=== PATIENT | male | born 1985 | race Caucasian/White ===

== ENCOUNTER → 2022-06-12 | Outpatient (CLI) | payer MEDICAID, SELFPAY ==
[2022-06-12 16:32] LABS: Absolute Lymphocyte Count 1.93 X10^3/uL (0.83-4.51); Absolute Neutrophil Count 1.7 X10^3/uL (2.0-7.7); Basophil# 0.02 X10^3/uL; Basophil% 0.5 % (0-1); Eosinophil# 0.28 X10^3/uL; Eosinophils% 6.6 % (0-5); Hematocrit 42.3 % (40-54); Hemoglobin 14.5 g/dL (13.0-16.5); Lymphocyte # 1.93 X10^3/ul (0.83-4.51); Lymphocyte % 45.5 % (19-41); Mean Corp Hgb Conc 34.3 g/dL (32-36); Mean Corpuscular Hgb 30.6 pg (27.0-32.0); Mean Corpuscular Volume 89.2 fL (80-94); Mean Platelet Vol. 9.7 fl (6.2-12.0); Monocyte# 0.33 X10^3/uL; Monocyte% 7.8 % (0-10); NRBC Flagged by Analyzer 0 % (0-5); Neutrophil # 1.67 X10^3/uL (2.7-7.7); Neutrophil % 39.4 % (47-70); Platelet Count 250 K/mm3 (150-450); RBC Distribution Width CV 12.3 % (11.6-14.6); RBC Distribution Width SD 40.5 fl (35.1-43.9); Red Blood Count 4.74 M/mm3 (4.6-6.2); White Blood Count 4.2 K/mm3 (4.4-11.0)
[2022-06-12 16:43] LABS: ALB/GLOB Ratio 1.2 RATIO (0.9-2.4); AST(SGOT) 20 U/L (15-37); Alanine Aminotransfer ALT/SGPT 29 U/L (16-61); Albumin, Serum 4.1 g/dL (3.2-5.0); Alkaline Phosphatase 72 U/L (45-117); Anion Gap 4 (5-15); BUN 17 mg/dL (7-18); BUN/Creat Ratio 20.1 RATIO (10-20); Calcium,Total 9.7 mg/dL (8.5-10.1); Chloride 106 mmol/L (98-107); Creatinine, Serum 0.85 mg/dL (0.70-1.30); EST Glomerular Filtration Rate 110 mL/min (>60); Est Glom Filt Rate - Afr Amer 133 mL/min (>60); Globulin 3.5 g/dL (2.2-4.2); Glucose 96 mg/dL (74-106); Potassium 4.3 mmol/L (3.5-5.1); Protein, Total 7.6 g/dL (6.4-8.2); Sodium Level 139 mmol/L (136-145)
== END | disposition home or self-care (01) ==
PROVIDERS: PCP Internal Medicine; Referring Provider Internal Medicine; Visit Provider Internal Medicine
DX: F41.9 Anxiety disorder, unspecified (principal); F32.A Depression, unspecified
CPT/HCPCS: 36415; 80053; 85025

== ENCOUNTER → 2023-08-05 | Outpatient (CLI) | payer MEDICAID, SELFPAY ==
[2023-08-05 16:45] LABS: Absolute Lymphocyte Count 1.79 X10^3/uL (0.83-4.51); Absolute Neutrophil Count 2.5 X10^3/uL (2.0-7.7); Basophil# 0.01 X10^3/uL; Basophil% 0.2 % (0-1); Eosinophil# 0.12 X10^3/uL; Eosinophils% 2.5 % (0-5); Hematocrit 41.1 % (40-54); Hemoglobin 14.2 g/dL (13.0-16.5); Lymphocyte # 1.79 X10^3/ul (0.83-4.51); Lymphocyte % 36.8 % (19-41); Mean Corp Hgb Conc 34.5 g/dL (32-36); Mean Corpuscular Hgb 30.4 pg (27.0-32.0); Mean Platelet Vol. 9.6 fl (6.2-12.0); Monocyte# 0.43 X10^3/uL; Monocyte% 8.8 % (0-10); NRBC Flagged by Analyzer 0 % (0-5); Neutrophil % 51.5 % (47-70); Platelet Count 262 K/mm3 (150-450); RBC Distribution Width CV 12.3 % (11.6-14.6); RBC Distribution Width SD 39.1 fl (35.1-43.9); Red Blood Count 4.67 M/mm3 (4.6-6.2); White Blood Count 4.9 K/mm3 (4.4-11.0)
[2023-08-05 16:59] LABS: ALB/GLOB Ratio 1.2 RATIO (0.9-2.4); AST(SGOT) 13 U/L (15-37); Alanine Aminotransfer ALT/SGPT 22 U/L (16-61); Albumin, Serum 4.1 g/dL (3.2-5.0); Alkaline Phosphatase 71 U/L (45-117); Anion Gap 4 (5-15); BUN 12 mg/dL (7-18); BUN/Creat Ratio 12.6 RATIO (10-20); Calcium,Total 9.7 mg/dL (8.5-10.1); Chloride 106 mmol/L (98-107); Cholesterol 170 mg/dL (200); Creatinine, Serum 0.95 mg/dL (0.70-1.30); EST Glomerular Filtration Rate 96 mL/min (>60); Est Glom Filt Rate - Afr Amer 116 mL/min (>60); Globulin 3.5 g/dL (2.2-4.2); Glucose 99 mg/dL (74-106); High Density Lipoprotein 58 mg/dL; Potassium 4.3 mmol/L (3.5-5.1); Protein, Total 7.6 g/dL (6.4-8.2); Sodium Level 138 mmol/L (136-145); Triglycerides 81 mg/dL; Very Low Density Lipoprotein 16 mg/dL (5-40)
== END | disposition home or self-care (01) ==
LOC: BIMLAB 14:57
PROVIDERS: PCP Internal Medicine; Referring Provider Internal Medicine; Visit Provider Internal Medicine
DX: Z00.00 Encounter for general adult medical examination without abnormal findings (principal)
CPT/HCPCS: 36415; 80053; 80061; 85025

== ENCOUNTER 2024-09-05 16:24 | Observation (INO) | payer MEDICAID, SELFPAY ==
[2024-09-05 16:26] VITALS: BP 116/82; PULSE 100; RESP 18; TEMP 36.4; O2SAT 99; BMI 24.0
--- NOTE | 2024-09-05 16:48 | EX.ED.DYSGE1 ---
HPI History of Present Illness Chief Complaint: Substance Abuse Narrative Narrative: Chief complaint and HPI: Requesting opiate detox. 38-year-old male with past medical history of depression, previous history of hepatitis C in which she was treated 2 years ago presents for evaluation of opiate detox. Patient states he is an IV drug abuser in which he uses fentanyl. Denies any other illicit drug. Last use this morning but states that he snorted. Denies any withdrawal symptoms at this time. Denies any alcohol use. Denies any suicidal or homicidal ideation. Denies any fever, chills, nausea, vomiting, body aches. Review of systems: See HPI Medications: As listed on the chart Allergies: As listed on the chart PFSH: Per chart Vital signs: As listed on the chart. Reviewed. Physical exam: Gen: A&O x3, NAD Head: Normocephalic, atraumatic Eyes: No sclera icterus, conjunctiva clear ENT: Moist mucous membranes Neck: Trachea midline, No JVD CV: RRR, no murmurs, no peripheral edema Resp: Lungs CTA BL, no w/r/c GI: Abd soft, non-distended, non-tender, no r/r/g Musc: Full ROM, no deformity Skin: Warm, dry Neuro: Alert, oriented, grossly intact, sensation intact Psych: Cooperative, appropriate mood and affect [facility] Medical History (Updated 09/05/24 @ 18:[address] Nory Panda DO) Preventative health care Hepatitis C virus infection cured after antiviral drug therapy Anxiety and depression Kidney failure History of drug abuse Asthma Home Medications ?Medication ?Instructions ?Recorded ?Last Taken ?Type citalopram 20 mg tablet 20 mg PO DAILY #90 TABLETS 11/08/23 Unknown Rx diphenhydramine HCl 25 mg capsule 25 mg PO QHS PRN SLEEP OR ALLERGIES 09/05/24 09/02/24 History (Aler-Cap) Allergy/AdvReac Type Severity Reaction Status Date / Time No Known Allergies Allergy Verified 09/05/24 16:26 Family History Father Alcoholism Anxiety Depression Social History (Updated 09/05/24 @ 16:50 by Daily Tierney) housing: house Smoking Status: Current every day smoker tobacco type: cigarettes Smokeless tobacco user: other Electronic Cigarette Use: with nicotine alcohol intake: former substance use type: former substance user what type of physical activity do you participate in: none seatbelt use: always do you feel safe at home: Yes EXAM Physical Exam Const Vital Signs: 09/05/24 16:26 09/05/24 17:03 09/05/24 17:25 Temperature 97.5 F L 97.5 F L Temperature Source Temporal Pulse Rate 100 100 70 Respiratory Rate 18 18 18 Blood Pressure 116/82 H 116/82 H 118/70 Blood Pressure Mean 93 93 86 Pulse Ox 99 99 99 Oxygen Delivery Method Room Air 09/05/24 18:00 Temperature Temperature Source Pulse Rate 86 Respiratory Rate 17 Blood Pressure 104/75 Blood Pressure Mean 84 Pulse Ox 100 Oxygen Delivery Method Room Air MDM MDM MDM Narrative Medical decision making narrative: 38-year-old male with past medical history of depression, previous history of hepatitis C in which she was treated 2 years ago presents for evaluation of opiate detox. Patient states he is an IV drug abuser in which he uses fentanyl. Denies any other illicit drug. Last use this morning but states that he snorted. Currently denying withdrawal symptoms. Plan will be for admission for detox. Basic labs ordered with alcohol and urine drug test. CBC unremarkable. CMP unremarkable except for hypokalemia of 3.2. P.o. potassium ordered. Alcohol level unremarkable. Urine drug screen positive for opioids, fentanyl, benzodiazepines, cannabis. Patient is stable to be admitted for opiate detox. Patient discussed with the hospitalist who accepted admission. Patient was updated of the plan and confirmed understanding. Impression: 1. Opiate abuse, requesting detox 2. Polysubstance abuse 3. Hypokalemia Lab Data Labs: Laboratory Results - last 24 hr 09/05/24 09/05/24 16:45 16:59 WBC 8.0 RBC 4.95 Hgb 15.0 Hct 43.2 MCV 87.3 MCH 30.3 MCHC 34.7 RDW Std Deviation 42.5 RDW Coeff of [place] 13.3 Plt Count 355 MPV 8.9 Immature Gran % (Auto) 0.300 Neut % (Auto) 55.2 Lymph % (Auto) 33.4 [place] % (Auto) 8.8 Eos % (Auto) 1.8 Baso % (Auto) 0.5 Absolute Neuts (auto) 4.4 Absolute Lymphs (auto) 2.66 Nucleated RBC % 0 Sodium 140 Potassium 3.2 L Chloride 101 Carbon Dioxide 22.8 Anion Gap 16 H BUN 22 H Creatinine 0.90 Estim Creat Clear Calc 113.47 Est GFR (MDRD) Non-Af 114 BUN/Creatinine Ratio 24.3 H Glucose 100 H Calcium 10.1 Total Bilirubin 0.59 AST 16 ALT 24 Alkaline Phosphatase 97 Total Protein 8.4 Albumin 4.8 Globulin 3.6 Albumin/Globulin Ratio 1.3 Urine Opiates Screen PRESUMPTIVE POSITIVE U Buprenorphine Qual NEGATIVE Ur Oxycodone Screen NEGATIVE Urine Methadone Screen NEGATIVE Urine Fentanyl Screen PRESUMPTIVE POSITIVE Ur Barbiturates Screen NEGATIVE Ur Phencyclidine Scrn NEGATIVE Ur Amphetamines Screen NEGATIVE U Benzodiazepines Scrn PRESUMPTIVE POSITIVE Urine Cocaine Screen NEGATIVE U Cannabinoids Screen PRESUMPTIVE POSITIVE Ethyl Alcohol < 10.1 Discharge Plan Triage Chief Complaint: Substance Abuse ED Provider: Tirso Belcher Dx/Rx/DC Orders Prescriptions: No Action diphenhydramine HCl [Aler-Cap] 25 mg capsule 25 mg PO QHS PRN (Reason: SLEEP OR ALLERGIES) citalopram 20 mg tablet 20 mg PO DAILY Qty: 90 2RF Primary Care Provider: Reid Aguilar Referrals: Reid Aguilar MD [Primary Care Provider] - Print Language: Luxembourger
[2024-09-05 17:03] VITALS: BP 116/82; PULSE 100; RESP 18; TEMP 36.4; O2SAT 99
[2024-09-05 17:18] LABS: Absolute Lymphocyte Count 2.66 X10^3/uL (0.83-4.51); Absolute Neutrophil Count 4.4 X10^3/uL (2.0-7.7); Basophil# 0.04 X10^3/uL; Basophil% 0.5 % (0-1); Eosinophil# 0.14 X10^3/uL; Eosinophils% 1.8 % (0-5); Hematocrit 43.2 % (40-54); Lymphocyte # 2.66 X10^3/ul (0.83-4.51); Lymphocyte % 33.4 % (19-41); Mean Corp Hgb Conc 34.7 g/dL (32-36); Mean Corpuscular Hgb 30.3 pg (27.0-32.0); Mean Corpuscular Volume 87.3 fL (80-94); Mean Platelet Vol. 8.9 fl (6.2-12.0); Monocyte% 8.8 % (0-10); NRBC Flagged by Analyzer 0 % (0-5); Neutrophil # 4.41 X10^3/uL (2.7-7.7); Neutrophil % 55.2 % (47-70); Platelet Count 355 K/mm3 (150-450); RBC Distribution Width CV 13.3 % (11.6-14.6); RBC Distribution Width SD 42.5 fl (35.1-43.9); Red Blood Count 4.95 M/mm3 (4.6-6.2)
[2024-09-05 17:25] VITALS: BP 118/70; PULSE 70; RESP 18; O2SAT 99
[2024-09-05 17:33] LABS: Alcohol, Blood (Medical)-Serum < 10.1 mg/dL (<=10.0)
[2024-09-05 17:34] LABS: ALB/GLOB Ratio 1.3 RATIO (0.9-2.4); AST(SGOT) 16 U/L (<=37); Alanine Aminotransfer ALT/SGPT 24 U/L (<=46); Albumin, Serum 4.8 g/dL (3.5-5.0); Alkaline Phosphatase 97 U/L (40-129); Anion Gap 16 (5-15); BUN 22 mg/dL (4-19); BUN/Creat Ratio 24.3 RATIO (10-20); Calcium,Total 10.1 mg/dL (7.6-11.0); Carbon Dioxide 22.8 mmol/L (21.0-32.0); Chloride 101 mmol/L (98-108); EST Glomerular Filtration Rate 114 (>60); Estimated Creatinine Clearance 113.47 ml/min (50-250); Globulin 3.6 g/dL (2.2-4.2); Glucose 100 mg/dL (70-99); Potassium 3.2 mmol/L (3.3-5.1); Protein, Total 8.4 g/dL (5.9-8.4); Sodium Level 140 mmol/L (133-145); Total Bilirubin 0.59 mg/dL (0.00-1.30)
[2024-09-05 17:43] LABS: Amphetamine Urine NEGATIVE (<1000 ng/mL); Barbiturate Urine NEGATIVE (< 200 ng/mL); Benzodiazepine Urine PRESUMPTIVE POSITIVE (< 200 ng/mL); Buprenorphine Urine NEGATIVE (< 200 ng/mL); Cocaine Urine NEGATIVE (< 300 ng/mL); Fentanyl, Urine PRESUMPTIVE POSITIVE; Methadone Urine NEGATIVE (< 300 ng/mL); Opiates Urine PRESUMPTIVE POSITIVE (< 300 ng/mL); Oxycodone, Urine NEGATIVE (< 100 ng/mL); PCP Urine NEGATIVE (< 25 ng/mL); THC Urine PRESUMPTIVE POSITIVE (< 50 ng/mL)
[2024-09-05] MEDS: Potassium Chloride Oral Soln 20 MEQ/15 ML UDC 40 MEQ PO (17:58)
[2024-09-05 18:00] VITALS: BP 104/75; PULSE 86; RESP 17; O2SAT 100
--- NOTE | 2024-09-05 18:28 | HP.PCM.HOS_ITS ---
HPI - General General Date of Admission: 09/05/24 Date of Service: 09/05/24 Chief Complaint: Opiate detox HPI Narrative JENNIFER FLOR, is a 38 M who presented to the emergency department at [facility] on 09/05/2024 requesting opiate detox. Patient was sober for 3 months up until about 6 months ago when he started using again. He states he really does not know why he started using. He does have a history of hepatitis C which was treated and cured after antiviral therapy however he states he has been shooting up so he could have hepatitis C again. He states that he has been using about half to 1 g daily of IV fentanyl. We did discuss his toxicology screen and he states that it is likely mixed with other substances. He also does admit to using marijuana. He denies any other substance abuse. Vital signs on presentation showed temperature of 98, heart rate 82, blood pressure is 125/79, respiratory 16 and pulse ox was 100% on room air. CBC is completely unremarkable. Chemistry panel shows mild hypokalemia with potassium of 3.2. He appears to be mildly dehydrated with a BUN of 22. Liver functions are normal. Toxicology screen was presumptive positive for opiates, fentanyl, benzodiazepines, and cannabinoids. [facility] Medical History Preventative health care Hepatitis C virus infection cured after antiviral drug therapy Anxiety and depression Kidney failure History of drug abuse Asthma Home Medications ?Medication ?Instructions ?Recorded ?Last Taken ?Type citalopram 20 mg tablet 20 mg PO DAILY #90 TABLETS 0 11/08/23 Unknown Rx diphenhydramine HCl 25 mg capsule 25 mg PO QHS PRN SLE EP OR ALLERGIES 09/05/24 09/02/24 History (Aler-Cap) Allergy/AdvReac Type Severity Reaction Status Date / Time No Known Allergies Allergy Verified 09/05/24 16:26 Family History Father Alcoholism Anxiety Depression Social History (Updated 09/05/24 @ 21:[address] Nory Panda DO) housing: house Smoking Status: Former smoker alcohol intake: former substance use type: opiates what type of physical activity do you participate in: none seatbelt use: always do you feel safe at home: Yes ROS Constitutional Constitutional: Reports chills, malaise and weakness; Denies anorexia, change in weight, fatigue, fever(s), night sweats or other Eyes Eyes: Denies blurry vision, change in eye color, change in vision, discharge from eye(s), double vision, erythema, eye pain, loss of vision or other ENT HEENT: Denies abnormal hearing, dysphagia, ear pain, epistaxis, headache(s), hearing loss, nasal congestion, nasal discharge, post nasal drip, sinus pressure, sore throat or other Cardiovascular Cardiovascular: Denies chest pain, claudication, dyspnea on exertion, edema, lightheadedness, orthopnea, palpitations, paroxysmal nocturnal dyspnea, rapid heart rate, syncope or other Respiratory/Chest Respiratory/Chest: Denies cough, dyspnea, excessive phlegm production, hemoptysis, productive cough, shortness of breath at rest, shortness of breath with exertion, wheezing or other Gastrointestinal Gastrointestinal: Reports abdominal pain and nausea; Denies coffee ground emesis, constipation, diarrhea, dyspepsia, hematemesis, hematochezia, loose stools, melena, vomiting or other Genitourinary Genitourinary: Denies burning urination, difficulty urinating, dysuria, hematuria, nocturia, urinary frequency, urinary hesitancy, urinary incontinence, urinary urgency or other Musculoskeletal Musculoskeletal: Reports myalgias; Denies arthralgias, back pain, joint pain, joint stiffness, joint swelling, neck pain or other Neurologic Neurologic: Denies abnormal gait, abnormal speech, confusion, disequilibrium, dizziness, focal weakness, headache(s), numbness, paresthesias, seizure-like activity, seizures, syncope, tingling, tremor(s) or other Psychiatric Psychiatric: Reports anxiety and depression; Denies homicidal ideation, suicidal ideation or other Endocrine Endocrinology: Denies change in body appearance, cold intolerance, excessive sweating, heat intolerance, polydipsia, polyuria or other Hematologic/Lymphatic Hematologic/Lymphatic: Denies anemia, easy bleeding, easy bruising, lymphadenopathy or other Allergic/Immunologic Allergic/Immunologic: Denies rhinitis, hives, eczemia, asthma or other Vital Signs Vital Signs Vital Signs: 09/05/24 16:26 09/05/24 17:03 09/05/24 17:25 Temperature 97.5 F L 97.5 F L Temperature Source Temporal Pulse Rate 100 100 70 Respiratory Rate 18 18 18 Blood Pressure 116/82 H 116/82 H 118/70 Blood Pressure Mean 93 93 86 Pulse Ox 99 99 99 Oxygen Delivery Method Room Air Weight Weight: 73.709 kg Body Mass Index (BMI) 24.0 Physical Exam Const alert, oriented x3, no apparent distress, average body habitus, healthy appearing and well nourished Constitutional Narrative: Middle-aged, white male, sitting up in bed, appears comfortable, nontoxic- appearing at this time, very pleasant General Appearance: cooperative HEENT normocephalic, head/scalp atraumatic, hearing grossly normal bilaterally and moist oral mucous membranes HEENT Narrative: Mallampati 2, no thrush Eyes conjunctivae normal Eyes Narrative: No scleral icterus Resp normal respiratory effort, no retractions, no use of accessory muscles and clear to auscultation bilaterally Auscultation: Negative for rales, rhonchi or wheezes Cardio regular rate, regular rhythm, S1 normal heart sound, S2 normal heart sound, no murmurs, no rub, no gallops and no clicks GI normal to inspection, nondistended, normoactive bowel sounds, soft to palpation and non-tender Extremity no clubbing, cyanosis or edema Extremity Narrative: Track santos noted on right upper extremity with no signs of infection Neuro oriented x3, moves all extremities and no focal motor deficits Speech: speech normal Psych affect normal Psych Narrative: Very pleasant, eye contact is good, patient gracious for care Results Lab / Micro Data 09/05/24 16:45 09/05/24 16:45 Labs: Laboratory Results - last 24 hr 09/05/24 16:45: WBC 8.0, RBC 4.95, Hgb 15.0, Hct 43.2, MCV 87.3, MCH 30.3, MCHC 34.7, RDW Std Deviation 42.5, RDW Coeff of [place] 13.3, Plt Count 355, MPV 8.9, Immature Gran % (Auto) 0.300, Neut % (Auto) 55.2, Lymph % (Auto) 33.4, [place] % (Auto) 8.8, Eos % (Auto) 1.8, Baso % (Auto) 0.5, Absolute Neuts (auto) 4.4, Absolute Lymphs (auto) 2.66, Nucleated RBC % 0, Sodium 140, Potassium 3.2 L, Chloride 101, Carbon Dioxide 22.8, Anion Gap 16 H, BUN 22 H, Creatinine 0.90, Estim Creat Clear Calc 113.47, Est GFR (MDRD) Non-Af 114, BUN/Creatinine Ratio 24.3 H, Glucose 100 H, Calcium 10.1, Total Bilirubin 0.59, AST 16, ALT 24, Alkaline Phosphatase 97, Total Protein 8.4, Albumin 4.8, Globulin 3.6, Albumin/Globulin Ratio 1.3, Ethyl Alcohol < 10.1 09/05/24 16:59: Urine Opiates Screen PRESUMPTIVE POSITIVE, U Buprenorphine Qual NEGATIVE, Ur Oxycodone Screen NEGATIVE, Urine Methadone Screen NEGATIVE, Urine Fentanyl Screen PRESUMPTIVE POSITIVE, Ur Barbiturates Screen NEGATIVE, Ur Phencyclidine Scrn NEGATIVE, Ur Amphetamines Screen NEGATIVE, U Benzodiazepines Scrn PRESUMPTIVE POSITIVE, Urine Cocaine Screen NEGATIVE, U Cannabinoids Screen PRESUMPTIVE POSITIVE Assessment & Plan Assessment/Plan (1) Opiate abuse, continuous: (2) Hypokalemia: PLAN: Plan Opiate abuse with pending withdrawal - Previously was sober for 3 years but started use about 6 months ago - Uses IV fentanyl - Will check hepatitis C viral load as he has had previous infection and antibodies will be positive - Check HIV rapid - Buprenorphine taper per protocol - Supportive medication for symptom management - 180 consultation Hypokalemia - P.o. potassium given in the department - Recheck in a.m. - Check a.m. magnesium level History of hepatitis C infection - Eradicated after antiviral therapy - Patient is concerned that he could potentially be reinfected so we will check viral load and HIV - Both studies are pending Depression/anxiety - Continue home citalopram Marijuana use - Recommend cessation History of tobacco abuse - Patient previously used e-cigarettes - Would recommend ongoing cessation DVT prophylaxis - Low risk - Encourage frequent and early ambulation CODE STATUS - Full code Charges/Coding Visit Charges Inpatient E&M: 05924 Init Hosp L2
[2024-09-05 19:49] VITALS: BMI 23.8
[2024-09-05 19:54] VITALS: BP 125/79; PULSE 82; RESP 16; TEMP 36.6; O2SAT 100
[2024-09-05] MEDS: Loperamide 2 MG Capsule PO (20:01)
[2024-09-05] MEDS: Dicyclomine 10 MG Capsule 20 MG PO (20:01)
[2024-09-05] MEDS: Gabapentin 300 MG Capsule PO (20:01)
[2024-09-05] MEDS: Ondansetron 8 MG Tablet PO (20:02)
[2024-09-05] MEDS: Methocarbamol 750 MG Tablet PO (20:02)
[2024-09-05] MEDS: Ibuprofen 400 MG Tablet PO (20:02)
[2024-09-05] MEDS: Buprenorphine HCl 2 MG TAB.SUBL SL (20:25)
[2024-09-05 21:33] LABS: HIV Nonreactive (Nonreactive)
[2024-09-06] MEDS: Buprenorphine HCl 2 MG TAB.SUBL SL ×3 (03:49→21:16)
[2024-09-06] MEDS: Ibuprofen 400 MG Tablet PO (03:55)
[2024-09-06 03:56] VITALS: BP 113/68; PULSE 76; RESP 16; TEMP 36.6; O2SAT 98
[2024-09-06] MEDS: hydrOXYzine PAM 25 MG Capsule 50 MG PO ×2 (03:56→22:45)
[2024-09-06] MEDS: Methocarbamol 750 MG Tablet PO ×3 (03:56→22:44)
--- NOTE | 2024-09-06 07:22 | PN.HOSP_ITS ---
Reason for Visit Reason for Visit: Diagnoses Hypokalemia (09/05/24) Opioid abuse, uncomplicated (09/05/24) Subjective Subjective Patient is a 38-year-old gentleman with history of chronic opioid dependence presented with desire to undergo detoxification Objective Data Objective Data Vital Signs: Vital Signs Temp Pulse Resp BP Pulse Ox O2 Del Method 97.8 F 76 16 113/68 98 Room Air 09/06/24 03:56 09/06/24 03:56 09/06/24 03:56 09/06/24 03:56 09/06/24 03:56 09/06/24 03:56 Oxygen Delivery Method Room Air Weight: 73.028 kg Body Mass Index (BMI) 23.8 Lab / Micro Data 09/05/24 16:45 09/06/24 06:17 Labs: Laboratory Results - last 24 hr 09/05/24 16:45: WBC 8.0, RBC 4.95, Hgb 15.0, Hct 43.2, MCV 87.3, MCH 30.3, MCHC 34.7, RDW Std Deviation 42.5, RDW Coeff of [place] 13.3, Plt Count 355, MPV 8.9, Immature Gran % (Auto) 0.300, Neut % (Auto) 55.2, Lymph % (Auto) 33.4, [place] % (Auto) 8.8, Eos % (Auto) 1.8, Baso % (Auto) 0.5, Absolute Neuts (auto) 4.4, Absolute Lymphs (auto) 2.66, Nucleated RBC % 0, Sodium 140, Potassium 3.2 L, Chloride 101, Carbon Dioxide 22.8, Anion Gap 16 H, BUN 22 H, Creatinine 0.90, Estim Creat Clear Calc 113.47, Est GFR (MDRD) Non-Af 114, BUN/Creatinine Ratio 24.3 H, Glucose 100 H, Calcium 10.1, Total Bilirubin 0.59, AST 16, ALT 24, Alkaline Phosphatase 97, Total Protein 8.4, Albumin 4.8, Globulin 3.6, Albumin/Globulin Ratio 1.3, Ethyl Alcohol < 10.1, HIV 1&2 Antibody Nonreactive 09/05/24 16:59: Urine Opiates Screen PRESUMPTIVE POSITIVE, U Buprenorphine Qual NEGATIVE, Ur Oxycodone Screen NEGATIVE, Urine Methadone Screen NEGATIVE, Urine Fentanyl Screen PRESUMPTIVE POSITIVE, Ur Barbiturates Screen NEGATIVE, Ur Phencyclidine Scrn NEGATIVE, Ur Amphetamines Screen NEGATIVE, U Benzodiazepines Scrn PRESUMPTIVE POSITIVE, Urine Cocaine Screen NEGATIVE, U Cannabinoids Screen PRESUMPTIVE POSITIVE Physical Exam Narrative GENERAL: cooperative HEENT: Atraumatic; normocephalic EYES; Anicteric, Normal Conjunctiva NECK; supple, normal thyroid, RESPIRATORY: Diminished to auscultation CARDIOVASCULAR: Regular S1 S2, GI: soft, normoactive bowel sounds, : No Renal angle tenderness; EXTREMITIES: No edema, no clubbing, MUSCULOSKELETAL: no muscle wasting NEURO: Awake; no lateralizing signs. SKIN: No Rash PSYCH; Flat affect Assessment & Plan Assessment/Plan (1) Opiate abuse, continuous: PLAN: Plan Patient is a 38-year-old gentleman with history of chronic opioid dependence presented with desire to undergo detoxification 1. Acute opioid withdrawal - Patient has been admitted to regular nursing floor, managed buprenorphine taper along with other adjunctive medications for medical stabilization 2. Hypokalemia ? Corrected per protocol 3. History of hep C ? Patient completed therapy with eradication 4. Depression with anxiety ? Patient is on citalopram did continue 5 DVT prophylaxis ? Low risk to encourage ambulation Time spent in the patient's overall evaluation,decision-making process, review of diagnostic data, adjustment of management, discussion with other providers, nursing nursing and ancillary staff involved in patient's care documentation, 38 Minutes Charges/Coding Visit Charges Inpatient E&M: 62695 Subs Hosp L2
[2024-09-06 07:35] LABS: Magnesium 2.4 mg/dL (1.5-2.2)
[2024-09-06 07:38] LABS: Anion Gap 11 (5-15); BUN 18 mg/dL (4-19); BUN/Creat Ratio 21.9 RATIO (10-20); Calcium,Total 9.4 mg/dL (7.6-11.0); Carbon Dioxide 22.4 mmol/L (21.0-32.0); Chloride 103 mmol/L (98-108); Creatinine, Serum 0.82 mg/dL (0.70-1.20); EST Glomerular Filtration Rate 117 (>60); Estimated Creatinine Clearance 124.54 ml/min (50-250); Glucose 99 mg/dL (70-99); Potassium 4.3 mmol/L (3.3-5.1); Sodium Level 137 mmol/L (133-145)
[2024-09-06 10:00] VITALS: BP 118/67; PULSE 58; RESP 19; TEMP 37.2; O2SAT 99
--- NOTE | 2024-09-06 10:30 | ADDICTION ---
This commercial loan underwriter met with PT to conduct ASAM, MSE, AUDIT, DUDIT assessments and to plan for d/c. PT A+Ox4 and participated actively. All assessments completed and placed in PT's chart. PT plans to f/u with [facility] for follow-up in patient treatment services on Wednesday. [facility] will transport to treatment.
[2024-09-06] MEDS: Gabapentin 300 MG Capsule PO (11:13)
[2024-09-06] MEDS: Citalopram 20 MG Tablet PO (11:13)
[2024-09-06 15:00] VITALS: BP 122/82; PULSE 68; RESP 18; TEMP 36.9; O2SAT 100
[2024-09-06 21:14] VITALS: BP 115/68; PULSE 66; RESP 16; TEMP 37; O2SAT 98
[2024-09-06] MEDS: traZODone 100 MG Tablet PO (22:45)
[2024-09-07 04:47] VITALS: BP 122/67; PULSE 70; RESP 16; TEMP 36.6; O2SAT 99
[2024-09-07] MEDS: Buprenorphine HCl 2 MG TAB.SUBL SL ×3 (04:50→21:11)
[2024-09-07 10:07] VITALS: BP 110/77; PULSE 94; RESP 16; TEMP 36.7; O2SAT 98
[2024-09-07] MEDS: hydrOXYzine PAM 25 MG Capsule 50 MG PO (10:12)
[2024-09-07] MEDS: Gabapentin 300 MG Capsule PO (10:12)
[2024-09-07] MEDS: Citalopram 20 MG Tablet PO (10:13)
--- NOTE | 2024-09-07 10:50 | PCM.PN.HOSP ---
Reason for Visit Reason for Visit: Diagnoses Hypokalemia (09/05/24) Opioid abuse, uncomplicated (09/05/24) Subjective Subjective Patient seen has tolerated the buprenorphine taper well so far. Plan is for patient to be discharged to an inpatient rehab facility in a.. Objective Data Objective Data Vital Signs: Vital Signs Temp Pulse Resp BP Pulse Ox O2 Del Method 98.1 F 94 16 110/77 98 Room Air 09/07/24 10:07 09/07/24 10:07 09/07/24 10:07 09/07/24 10:07 09/07/24 10:07 09/07/24 10:07 Oxygen Delivery Method Room Air Weight: 73.028 kg Body Mass Index (BMI) 23.8 Lab / Micro Data 09/05/24 16:45 09/06/24 06:17 Physical Exam Narrative GENERAL: cooperative HEENT: Atraumatic; normocephalic EYES; Anicteric, Normal Conjunctiva NECK; supple, normal thyroid, RESPIRATORY: Diminished to auscultation CARDIOVASCULAR: Regular S1 S2, GI: soft, normoactive bowel sounds, : No Renal angle tenderness; EXTREMITIES: No edema, no clubbing, MUSCULOSKELETAL: no muscle wasting NEURO: Awake; no lateralizing signs. SKIN: No Rash PSYCH; Flat affect Assessment & Plan Assessment/Plan (1) Opiate abuse, continuous: PLAN: Plan Patient is a 38-year-old gentleman with history of chronic opioid dependence presented with desire to undergo detoxification 1. Acute opioid withdrawal - Patient has been admitted to regular nursing floor, managed buprenorphine taper along with other adjunctive medications for medical stabilization 09/07/2024; Patient seen has tolerated the buprenorphine taper well so far. Plan is for patient to be discharged to an inpatient rehab facility in a.. 2. Hypokalemia ? Corrected per protocol 3. History of hep C ? Patient completed therapy with eradication 4. Depression with anxiety ? Patient is on citalopram did continue 5 DVT prophylaxis ? Low risk to encourage ambulation Time spent in the patient's overall evaluation,decision-making process, review of diagnostic data, adjustment of management, discussion with other providers, nursing nursing and ancillary staff involved in patient's care documentation, 35 Minutes Charges/Coding Visit Charges Inpatient E&M: 90701 Subs Hosp L2
--- NOTE | 2024-09-07 10:55 | CASEMGMT ---
Social Work- SW confirmed that pt has applied for [facility] with [facility]. Pt plans to discharge to [facility] inpatient for treatment and does not feel any additional resources are needed at this time. EBONIE called [facility] who provided . RAMP coordinator advised. EBONIE remains available to follow. CODY Allison
[2024-09-07] MEDS: Methocarbamol 750 MG Tablet PO (12:51)
[2024-09-07] MEDS: Ibuprofen 400 MG Tablet PO (12:51)
[2024-09-07 15:08] LABS: HCV Quant. RNA PCR HCV Not Detected IU/mL (.)
[2024-09-07 16:00] VITALS: BP 96/50; PULSE 69; RESP 16; TEMP 37.2; O2SAT 98
[2024-09-07 21:07] VITALS: BP 102/68; PULSE 67; RESP 16; TEMP 36.5; O2SAT 98
[2024-09-08 03:05] VITALS: BP 109/68; PULSE 71; RESP 16; TEMP 36.4; O2SAT 100
--- NOTE | 2024-09-08 09:03 | PCM.DC.SUM ---
Providers Date of Admission: 09/05/24 Date of Discharge: 09/08/24 Primary Care Physician: Dr. Reid Aguilar MD Reason For Visit: OPIATE DETOX Diagnosis Discharge Diagnosis (1) Opiate abuse, continuous: Status: Acute Code(s): F11.10 - Opioid abuse, uncomplicated Plan Patient is a 38-year-old gentleman with history of chronic opioid dependence presented with desire to undergo detoxification 1. Acute opioid withdrawal - Patient has been admitted to regular nursing floor, managed buprenorphine taper along with other adjunctive medications for medical stabilization 09/07/2024; Patient seen has tolerated the buprenorphine taper well so far. Plan is for patient to be discharged to an inpatient rehab facility in a.m. ? 09/08/2024; patient stable for discharge to inpatient rehab unit 2. Hypokalemia ? Corrected per protocol 3. History of hep C ? Patient completed therapy with eradication 4. Depression with anxiety ? Patient is on citalopram did continue 5 DVT prophylaxis ? Low risk to encourage ambulation Time spent in the patient's overall evaluation,decision-making process, review of diagnostic data, adjustment of management, discussion with other providers, nursing nursing and ancillary staff involved in patient's care documentation, 32 Minutes Medications at Discharge Home Medications citalopram 20 mg tablet 20 mg PO DAILY #90 TABLETS 11/08/23 diphenhydramine HCl 25 mg capsule (Aler-Cap) 25 mg PO QHS PRN SLEEP OR ALLERGIES 09/05/24 Physical Exam Narrative GENERAL: cooperative HEENT: Atraumatic; normocephalic EYES; Anicteric, Normal Conjunctiva NECK; supple, normal thyroid, RESPIRATORY: Diminished to auscultation CARDIOVASCULAR: Regular S1 S2, GI: soft, normoactive bowel sounds, : No Renal angle tenderness; EXTREMITIES: No edema, no clubbing, MUSCULOSKELETAL: no muscle wasting NEURO: Awake; no lateralizing signs. SKIN: No Rash PSYCH; Flat affect Weight / BMI Weight Weight: 73.028 kg Body Mass Index (BMI) 23.8 ABG / Lab / Microbiology Data 09/05/24 16:45 09/06/24 06:17 Laboratory: Laboratory Results - last 24 hr 09/06/24 06:17: HCV RNA Quant (PCR) HCV Not Detected, HCV RNA (PCR) IU log10 TNP, HCV RNA PCR Test Info Comment D/C Instructions Discharge Diet: No restrictions Discharge Activity: Return to Normal Activity Call your doctor if you observe: Fever of 101 or Higher, Shortness of breath, Fainting spells and Chest pain DC O2, CPAP, BIPAP Needs Home O2 Discharge instructions: No Meaningful Use Info Meaningful Use Meaningful Use Diagnoses (Choose all that apply): None applicable Ischemic Stroke Statin Dosing Therapy Reference: STATIN DOSE THERAPY REFERENCE: * Patients > 75 years receive moderate or high dose statin therapy. * Patients 75 years or YOUNGER should receive HIGH intensity statin dose unless contraindicated. You will be required to document reason for non-treatment if statin daily dose does not meet guidelines. HIGH DOSE STATIN THERAPY DAILY Atorvastatin > than or = to 40 mg Rosuvastatin > than or = to 20 mg Amlodipine + Atorvastatin > than or = to 2.5/40 mg Ezetimibe + Simvastatin 10/80 mg Simvastatin 80mg Discharge Plan Admission Admit Date/Time: 09/05/24 18:31 Attending Provider: Nehemias Leone Primary Care Provider: Reid Aguilar Consulting Providers: Nory Panda Discharge Orders/Prescriptions Prescriptions: Continued diphenhydramine HCl [Aler-Cap] 25 mg capsule 25 mg PO QHS PRN (Reason: SLEEP OR ALLERGIES) citalopram 20 mg tablet 20 mg PO DAILY Qty: 90 2RF Referrals / Follow Up: Reid Aguilar MD [Primary Care Provider] - Within 1 Month Disposition Disposition (needs filled in before D/C Order can be placed): Inpatient Rehab Unit/Facility Charges/Coding Visit Charges Inpatient E&M: 38195 Disch Hosp >30min
[2024-09-08 09:20] VITALS: BP 113/69; PULSE 90; RESP 14; TEMP 36.9; O2SAT 97
[2024-09-08] MEDS: Buprenorphine HCl 2 MG TAB.SUBL SL (09:22)
[2024-09-08] MEDS: Citalopram 20 MG Tablet PO (09:22)
== END 2024-09-08 11:18 ==
LOC: ED 17:04 → MS3 09-06 01:39
PROVIDERS: Admitting Provider Internal Medicine; Emergency Provider Surgery; PCP Internal Medicine; Visit Provider Internal Medicine
DX: F11.23 Opioid dependence with withdrawal (principal); E87.6 Hypokalemia; F32.A Depression, unspecified; F12.90 Cannabis use, unspecified, uncomplicated; F41.9 Anxiety disorder, unspecified; Z79.899 Other long term (current) drug therapy; Z87.891 Personal history of nicotine dependence
CPT/HCPCS: 80048; 80053; 80307; 82077; 83735; 84100; 85025; 86703; 87522; 99221; 99283; G0378